=== PATIENT | male | born 1980 | race Caucasian/White ===

== ENCOUNTER 2020-12-28 18:16 | Emergency (ER) | payer BC, OTHER ==
[~2020-12-28] VITALS: Ht 180.3 cm; Wt 61.2 kg
[~2020-12-28 18:16] MED LIST: NORVIR80 MG/1 ML; TRUVADA 200 MG1 EACH
== END 2020-12-28 19:05 | disposition left against medical advice (07) ==
LOC: ER 18:40
DX: R11.2 Nausea with vomiting, unspecified (principal)